=== PATIENT | male | born 1985 | race African-American/Black ===

== ENCOUNTER 2016-05-25 13:03 | Emergency (ER) | payer OTHER ==
--- NOTE | ~2016-05-25 | CR72 ---
[facility] A Service of [facility] & [facility] RADIOLOGY TEXT RESULTS PATIENT: STEPHENIE RON LOCATION: [facility] : 85 UNIT #: [id number] AGE: [address]: Sixto Pemberton MD SEX: M ORDER DR: [id number] [facility] [address] [place], [place] [address] [id number] MR#: [id number] Acc #: [id number] NAME: STEPHENIE RON : 1985 SEX: M STUDY DATE/TIME: 05/25/2016 12:53 UNIT: [facility] ROOM: STUDY DESCRIPTION: CR Chest Single View Portable Attending Physician: iSxto Pemberton M.D. Ordering Physician: Sixto Pemberton M.D. Primary Care Physician: Zully Kaplan M.D. MEDICAL IMAGING REPORT This report is preliminary unless electronic signature is present EXAM Portable chest radiograph INDICATION Chest pain. This has been present for 2 weeks. Patient also reports shortness of air. FINDINGS The heart size is within normal limits. Lungs appear clear. No focal infiltrates are identified. There is no pneumothorax or pleural effusion. Dictated by... Peyton Presley M.D. THIS IS AN ELECTRONICALLY VERIFIED REPORT Peyton Presley M.D. at 05/27/2016 2:12 PM WARREN/isa TD: 05/25/2016 14:08 JOB #: [id number] MEDICAL IMAGING REPORT Page 1 of 1 COPY
--- NOTE | ~2016-05-25 | EKG ---
PATIENT: STEPHENIE RON UNIT #: [id number] Ventricular Rate: 66 BPM Atrial Rate: 66 BPM P-R Interval: 156 ms QRS Duration: 82 ms Q-T Interval: 378 ms QTC Calculation(Bezet): 396 ms P Hadley: 7 degrees Calculated R Hadley: 46 degrees Calculated T Hadley: 35 degrees Diagnosis Line: Sinus rhythm with Premature atrial complexes with Diagnosis Line: Aberrant conduction Diagnosis Line: Otherwise normal ECG Diagnosis Line: No previous ECGs available Diagnosis Line: Confirmed by MARCIA BERNAL MD ([id number]) on 05/26/2016 Diagnosis Line: 6:10:55 AM INTERPRETING MD: GABE LAZO
[2016-05-25 11:26] LABS: POC - CKMB <1.0 ng/mL (0.0-7.9); POC - TROPONIN <0.05 ng/mL (<=0.05)
[2016-05-25 11:32] LABS: BASOPHIL% 0.6 % (0-2.5); EOSINOPHIL# 0.1 X10e3 (0-0.7); EOSINOPHIL% 1.1 % (0.0-7.0); HEMATOCRIT 42.6 % (38.0-50.0); HEMOGLOBIN 13.8 gm/dL (13.0-16.0); LYMPHOCYTE# 1.8 X10e3 (1.0-3.5); LYMPHOCYTE% 33.1 % (17.0-45.0); MEAN CELL VOLUME 86.1 FL (83-96); MEAN CORPUSCULAR HGB CONC 32.5 g/dL (30-36); MEAN PLATELET VOLUME 7.7 FL (6.5-11.5); MONOCYTE# 0.8 X10e3 (0-1.0); MONOCYTE% 13.7 % (3.0-12.0); NEUTROPHIL# 2.9 X10e3 (1.5-7.1); NEUTROPHIL% 51.5 % (40-75); PLATELET COUNT 210 X10e3 (140-420); RED BLOOD COUNT 4.94 X10e (3.90-5.60); WHITE BLOOD COUNT 5.5 X10e3 (4.0-10.5)
[2016-05-25 11:39] LABS: DIFF IND NO
[2016-05-25 11:55] LABS: ALBUMIN SERUM 4.4 g/dL (3.5-5.0); BILIRUBIN, DIRECT 0.1 mg/dL (0.0-0.2); BILIRUBIN,INDIRECT 0.8 mg/dL (0.0-0.9); BILIRUBIN,TOTAL 0.9 mg/dL (0.2-2.0); BUN/CREATININE RATIO 17.5; CALCIUM SERUM 9.7 mg/dL (8.4-10.2); CREATININE SERUM 0.8 mg/dL (0.6-1.4); POTASSIUM 3.9 mmol/L (3.5-5.1); PROTEIN TOTAL SERUM 7.6 g/dL (6.0-8.3)
[2016-05-25 12:34] LABS: POC - CKMB <1.0 ng/mL (0.0-7.9); POC - TROPONIN <0.05 ng/mL (<=0.05)
== END 2016-05-25 14:00 | disposition home or self-care (01) ==
LOC: CED 13:03
PROVIDERS: Emergency Medicine
DX: R07.89 Other chest pain (principal)
CPT/HCPCS: 36415; 71010; 80048; 80076; 82553; 84484; 85025; 93005; 99284